=== PATIENT | male | born 1990 | race Caucasian/White ===

== ENCOUNTER 2018-11-15 10:17 | Emergency (ER) | payer OTHER ==
[2018-11-15 10:28] VITALS: BP 157/97
[2018-11-15] MEDS ORDERED: CHERRY SYRUP 10 ML UDC PO ONE (12:15)
[2018-11-15] MEDS ORDERED: DEXAMETHASONE 10 MG/ML VIAL PO STA (12:15)
--- NOTE | 2018-11-15 12:17 | ED Physician Documentation ---
PD HPI HEENT - Stated complaint Stated Complaint: THROAT PAIN - Chief complaint Chief Complaint: Heent - History obtained from History obtained from: Patient - History of Present Illness Timing - onset: Yesterday Timing - duration: Days (2) Timing - details: Gradual onset, Still present Location: Throat Improves: Medication Worsens: Swalllowing Associated symptoms: Fever, Congestion, Swollen nodes, Headache. No: Cough Similar symptoms before: Diagnosis (strep) Recently seen: Not recently seen - Additional information Additional information: 28-year-old male with a 2-day history of sore throat fever and no cough. Review of Systems Constitutional: reports: Fever Eyes: denies: Decreased vision Ears: denies: Ear pain Nose: reports: Rhinorrhea / runny nose, Congestion Throat: reports: Sore throat Cardiac: denies: Chest pain / pressure, Palpitations Respiratory: denies: Dyspnea, Cough GI: denies: Abdominal Pain, Nausea, Vomiting : denies: Dysuria, Frequency PD PAST MEDICAL HISTORY - Past Surgical History Past Surgical History: Yes HEENT: Tonsil/Adenoidectomy - Present Medications Home Medications: Ambulatory Orders Medication Instructions Recorded Confirmed Amoxicillin 875 mg PO BID #20 tablet 11/15/18 - Allergies Allergies/Adverse Reactions: Allergies Allergy/AdvReac Type Severity Reaction Status Date / Time No Known Drug Allergies Allergy Verified 11/15/18 10:28 - Social History Does the pt smoke?: Yes Smoking Status: Current every day smoker Does the pt drink ETOH?: Yes Does the pt have substance abuse?: No - Immunizations Immunizations are current?: Yes PD ED PE NORMAL - Vitals Vital signs reviewed: Yes - General General: Alert and oriented X 3, No acute distress, Well developed/nourished - HEENT HEENT: Atraumatic, PERRL, EOMI, Other (right TM is with minimal inflamation the left is clear the pharynx is with minimal inflamation to the uvual ) - Neck Neck: Supple, no meningeal sign, No bony TTP - Cardiac Cardiac: RRR, No murmur - Respiratory Respiratory: No respiratory distress, Clear bilaterally - Abdomen Abdomen: Soft, Non tender - Back Back: No CVA TTP, No spinal TTP - Derm Derm: Normal color, Warm and dry, No rash - Extremities Extremities: No deformity, No edema - Neuro Neuro: Alert and oriented X 3, litigation partner 2-12 intact, No motor deficit, No sensory deficit, Normal speech Eye Opening: Spontaneous Motor: Obeys Commands Verbal: Oriented GCS Score: 15 - Psych Psych: Normal mood, Normal affect Results - Vitals Vitals: Vital Signs - 24 hr 11/15/18 10:25 Temperature 37.1 C Heart Rate 57 L Respiratory 16 Rate Blood Pressure 157/97 H O2 Saturation 98 Oxygen O2 Source Room air - Labs Labs: Laboratory Tests 11/15/18 10:32 Group A Strep Rapid POSITIVE H PD MEDICAL DECISION MAKING - ED course Complexity details: reviewed results, considered differential, d/w patient, d/w family ED course: 28-year-old male with a sore throat has a positive rapid strep is administered Dexamethasone 10 mg orally we will place him on some amoxicillin. Departure - Departure Disposition: 01 Home, Self Care Clinical Impression: Strep pharyngitis Condition: Stable Instructions: ED Strep Pharyngitis Conf Follow-Up: JONATHAN Lau [Provider Group] Prescriptions: Amoxicillin 875 mg PO BID #20 tablet Forms: Activity restrictions
== END 2018-11-15 12:34 | disposition home or self-care (01) ==
LOC: ED 10:17
DX: J02.0 Streptococcal pharyngitis (principal); F17.200 Nicotine dependence, unspecified, uncomplicated
CPT/HCPCS: 87430; 99283; A9270

== ENCOUNTER 2019-01-04 18:28 | Emergency (ER) | payer OTHER ==
[2019-01-04] MEDS ORDERED: guaiFENesin/CODEINE 5 ML UDC PO STA (20:22)
--- NOTE | 2019-01-04 20:22 | ED Physician Documentation ---
PD HPI URI - Stated complaint Stated Complaint: CHEST CONGESTION - Chief complaint Chief Complaint: Resp - History obtained from History obtained from: Patient - History of Present Illness Timing - onset: Yesterday Timing details: Gradual onset, Waxing and waning Pain level max: 8 Pain level now: 5 Associated symptoms: Chills, Sweats, Sore throat, Dry cough, Chest pain (when coughing). No: Fever, Dyspnea Improves by: Other (OTC cough/cold medication (tylenol cold and flu, theraflu)) Recently seen: Not recently seen Review of Systems Constitutional: reports: Chills, Fatigue, Sweats. denies: Fever Ears: denies: Ear pain Throat: reports: Sore throat Cardiac: reports: Chest pain / pressure (only with coughing) Respiratory: reports: Cough. denies: Dyspnea PD PAST MEDICAL HISTORY - Past Medical History Past Medical History: No - Past Surgical History Past Surgical History: Yes HEENT: Tonsil/Adenoidectomy - Present Medications Home Medications: Ambulatory Orders Medication Instructions Recorded Confirmed guaiFENesin/CODEINE [Robitussin AC] 5 - 10 ml PO Q6H PRN #100 [facility] [place] 01/04/19 - Allergies Allergies/Adverse Reactions: Allergies Allergy/AdvReac Type Severity Reaction Status Date / Time No Known Drug Allergies Allergy Verified 01/04/19 18:32 - Social History Does the pt smoke?: Yes Smoking Status: Current every day smoker Does the pt drink ETOH?: Yes Does the pt have substance abuse?: No - Immunizations Immunizations are current?: Yes - POLST Patient has POLST: No PD ED PE NORMAL - Vitals Vital signs reviewed: Yes - General General: Alert and oriented X 3, No acute distress, Well developed/nourished - HEENT HEENT: Moist mucous membranes, Pharynx benign - Neck Neck: Supple, no meningeal sign - Cardiac Cardiac: RRR, No murmur - Respiratory Respiratory: No respiratory distress, Clear bilaterally Results - Vitals Vitals: Vital Signs - 24 hr 01/04/19 01/04/19 18:31 20:27 Temperature 37 C 36.8 C Heart Rate 74 64 Respiratory 20 18 Rate Blood Pressure 174/106 H 142/90 H O2 Saturation 97 97 Oxygen O2 Source Room air PD MEDICAL DECISION MAKING - ED course Complexity details: reviewed old records, considered differential, d/w patient ED course: lungs clear to auscultation bilaterally, normal appearance posterior o/p . HPI and exam most s/o URI; emergent testing not indicated at this time. Patient tells me his chief concern is the cough and associated pain with coughing, and thus rx for robitussin AC provided. Departure - Departure Disposition: Home, Self Care Clinical Impression: Bronchitis Condition: Good Health Concerns: chest congestion, cough, sore throat Plan of Treatment: rest, prescription cough medication (Robitussin AC) Care Goals: symptoms control followed by resolution of symptoms Assessment: see diagnosis Instructions: ED Upper Resp Infec No Abx Tx Follow-Up: JONATHAN Lau [Provider Group] Prescriptions: guaiFENesin/CODEINE [Robitussin AC] 5 - 10 ml PO Q6H PRN #100 [facility] PRN Reason: Cough Forms: Activity restrictions Discharge Date/Time: 01/04/19 20:30
[2019-01-04 20:29] VITALS: BP 142/90
== END 2019-01-04 20:30 | disposition home or self-care (01) ==
LOC: ED 18:28
DX: J40 Bronchitis, not specified as acute or chronic (principal); F17.200 Nicotine dependence, unspecified, uncomplicated
CPT/HCPCS: 99283; A9270

== ENCOUNTER 2019-04-16 16:53 | Emergency (ER) | payer OTHER ==
[2019-04-16 17:03] VITALS: BP 163/102
[2019-04-16] MEDS ORDERED: AMOX/CLAV 875 MG/125 MG TABLET PO STA (18:31)
[2019-04-16] MEDS ORDERED: BACITRACIN ZINC OINT 14 GM TOP STA (18:32)
--- NOTE | 2019-04-16 18:34 | ED Physician Documentation ---
PD HPI UPPER EXT INJURY - Stated complaint Stated Complaint: L FINGER LAC - Chief complaint Chief Complaint: Laceration - History obtained from History obtained from: Patient - History of Present Illness Location: Left, Finger (index) Type of injury: Other (dog bite) Timing - onset: How many hours ago (2) Timing - duration: Hours (2) Timing - details: Abrupt onset Pain level max: 3 Pain level now: 2 Improved by: Rest Worsened by: Moving, Palpating Associated symptoms: Swelling. No: Weakness, Numbness, Tingling Contributing factors: No: Anticoagulated Recently seen: Not recently seen - Additonal information Additional information: Td UTD. pt is right handed. Review of Systems Constitutional: denies: Fever Neurologic: denies: Focal weakness, Numbness PD PAST MEDICAL HISTORY - Past Medical History Past Medical History: No - Past Surgical History Past Surgical History: Yes HEENT: Tonsil/Adenoidectomy - Present Medications Home Medications: Ambulatory Orders Medication Instructions Recorded Confirmed Amox/Clav 875/125 [Augmentin] 1 each PO Q12H #20 tablet 04/16/19 - Allergies Allergies/Adverse Reactions: Allergies Allergy/AdvReac Type Severity Reaction Status Date / Time No Known Drug Allergies Allergy Verified 04/16/19 17:03 - Living Situation Living Arrangement: reports: At home - Social History Does the pt smoke?: Yes Smoking Status: Current every day smoker Does the pt drink ETOH?: Yes Does the pt have substance abuse?: No - Immunizations Immunizations are current?: Yes Immunizations: TDAP current <10years - POLST Patient has POLST: No PD ED PE NORMAL - Vitals Vital signs reviewed: Yes - General General: Alert and oriented X 3, No acute distress - Derm Derm: Warm and dry - Extremities Extremities: Other (Left index finger with 3 small abrasions. No significant lacerations. Neurovascularly intact. Tendon intact. No evidence of bony injury.) - Neuro Neuro: Alert and oriented X 3 Results - Vitals Vitals: Vital Signs - 24 hr 04/16/19 17:01 Temperature 36.8 C Heart Rate 120 H Respiratory 18 Rate Blood Pressure 163/102 H O2 Saturation 96 Oxygen O2 Source Room air PD MEDICAL DECISION MAKING - ED course Complexity details: considered differential, d/w patient ED course: Wounds were cleansed and bandaged. Tetanus is up-to-date. Will prescribe antibiotics for home. Warnings of infection and instructions on wound care given at bedside. Also counseled on how to minimize scarring. Patient counseled regarding signs and symptoms for which I believe and urgent re-evaluation would be necessary. Patient with good understanding of and agreement to plan and is comfortable going home at this time This document was made in part using voice recognition software. While efforts are made to proofread this document, sound alike and grammatical errors may occur. Departure - Departure Disposition: Home, Self Care Clinical Impression: Dog bite Qualifiers: Encounter type: initial encounter Qualified Code(s): W54.0XXA - Bitten by dog, initial encounter Condition: Good Instructions: ED Bite Animal General Follow-Up: JONATHAN Lau [Provider Group] - Within 1 week Prescriptions: Amox/Clav 875/125 [Augmentin] 1 each PO Q12H #20 tablet Comments: Return if you notice redness, swelling or drainage from the wound. Take all antibiotics until gone. Follow-up with your doctor next week for a wound check. Discharge Date/Time: 04/16/19 18:44
== END 2019-04-16 18:44 | disposition home or self-care (01) ==
LOC: ED 16:53
DX: S61.251A Open bite of left index finger without damage to nail, initial encounter (principal); W54.0XXA Bitten by dog, initial encounter; F17.200 Nicotine dependence, unspecified, uncomplicated
CPT/HCPCS: 99282; 99283; A9270

== ENCOUNTER 2019-07-09 09:41 | Emergency (ER) | payer OTHER ==
[2019-07-09 10:15] LABS: RAPID STREP SCREEN Negative (Negative)
--- NOTE | 2019-07-09 11:57 | ED Physician Documentation ---
History of Present Illness - Stated complaint Stated Complaint: SOA/SORE THROAT - Chief complaint Chief Complaint: Heent - Additonal information Additional information: This is a 29-year-old male presents with sore throat. He developed a sore throat cough and nasal congestion several days ago, sore throat has gotten somewhat worse since that time. He has been taking [id number] flu medication yesterday, and this helped temporarily. He has had multiple sick contacts. He has not had a measured fever.He came in because he wanted to check to make sure he did not have strep throat. Review of Systems Constitutional: denies: Fever Throat: reports: Sore throat PD PAST MEDICAL HISTORY - Past Medical History Cardiovascular: None Respiratory: None Endocrine/Autoimmune: None GI: None : None HEENT: None Psych: None Musculoskeletal: None Derm: None - Past Surgical History Past Surgical History: Yes HEENT: Tonsil/Adenoidectomy - Present Medications Home Medications: Ambulatory Orders Medication Instructions Recorded Confirmed Benzonatate [Tessalon Perle] 100 - 200 mg PO TID PRN #30 capsule 07/09/19 - Allergies Allergies/Adverse Reactions: Allergies Allergy/AdvReac Type Severity Reaction Status Date / Time No Known Drug Allergies Allergy Verified 07/09/19 09:55 - Social History Does the pt smoke?: Yes Smoking Status: Current every day smoker Does the pt drink ETOH?: Yes Does the pt have substance abuse?: No - Immunizations Immunizations are current?: Yes Immunizations: TDAP current <10years - POLST Patient has POLST: No PD ED PE NORMAL - Vitals Vital signs reviewed: Yes - General General: Alert and oriented X 3 - HEENT HEENT: Atraumatic, Other (Tonsils are 2+, erythematous, edematous, but without exudate. Uvula is midline. No trismus. Airway widely patent.) - Neck Neck: Supple, no meningeal sign - Cardiac Cardiac: RRR - Respiratory Respiratory: No respiratory distress - Extremities Extremities: No deformity - Neuro Neuro: Alert and oriented X 3 Results - Vitals Vitals: Vital Signs - 24 hr 07/09/19 07/09/19 09:54 12:27 Temperature 36.6 C 36.6 C Heart Rate 71 78 Respiratory 18 16 Rate Blood Pressure 145/91 H 162/99 H O2 Saturation 95 98 Oxygen O2 Source Room air - Labs Labs: Laboratory Tests 07/09/19 09:56 Group A Strep Rapid Negative PD MEDICAL DECISION MAKING - ED course ED course: Patient presents with symptoms consistent with a viral syndrome. He does have a sore throat but this is more likely a viral pharyngitis given his cough and nasal congestion. He does not have exudates, has not had fever. Rapid strep is negative. No signs of NEWS SPECIALIST or other bacterial or more serious infection. He is well-appearing and I discussed supportive care, he was given a dose of dexamethasone, I reviewed return precautions, patient was discharged home in good condition Departure - Departure Disposition: Home, Self Care Clinical Impression: Viral upper respiratory illness, Sore throat Condition: Good Instructions: ED Viral Syndrome Prescriptions: Benzonatate [Tessalon Perle] 100 - 200 mg PO TID PRN #30 capsule PRN Reason: Cough Comments: Your strep test was negative today. I think this is a viral illness. You may continue with your [id number]-zeddexi cold/flu medications, we also gave you steroid today that should help. You may try the Tessalon Perles for cough. If you having worsening symptoms such as inability to swallow liquids, or worsening swelling on one side of your face or throat, return to the emergency department. Discharge Date/Time: 07/09/19 12:32
[2019-07-09] MEDS ORDERED: CHERRY SYRUP 10 ML UDC PO ONE (12:05)
[2019-07-09] MEDS ORDERED: DEXAMETHASONE 10 MG/ML VIAL PO STA (12:05)
[2019-07-09 12:31] VITALS: BP 162/99
== END 2019-07-09 12:32 | disposition home or self-care (01) ==
LOC: ED 09:41
DX: J06.9 Acute upper respiratory infection, unspecified (principal); J02.8 Acute pharyngitis due to other specified organisms; B97.89 Other viral agents as the cause of diseases classified elsewhere; F17.200 Nicotine dependence, unspecified, uncomplicated
CPT/HCPCS: 87070; 87430; 99283; 99284; A9270

== ENCOUNTER 2020-06-10 20:16 | Emergency (ER) | payer OTHER ==
[2020-06-10 20:22] VITALS: BP 160/86
[2020-06-10] MEDS ORDERED: BUFFERED LIDOCAINE 10 ML SYRINGE SUBQ STA (20:32)
--- NOTE | 2020-06-10 20:34 | ED Physician Documentation ---
PD HPI WOUND RECHECK - Stated complaint Stated Complaint: LOW BACK PX - Chief complaint Chief Complaint: Back Pain - Histroy obtained from History obtained from: Patient (He had a pilonidal cyst once 8 years ago that was in the range. It has come back with pain over the last couple of days. No fever. No drainage.) Review of Systems Constitutional: reports: Reviewed and negative Ears: reports: Reviewed and negative Throat: reports: Reviewed and negative Cardiac: reports: Reviewed and negative PD PAST MEDICAL HISTORY - Past Medical History Cardiovascular: None Respiratory: None Endocrine/Autoimmune: None GI: None : None HEENT: None Psych: None Musculoskeletal: None Derm: None - Past Surgical History Past Surgical History: Yes HEENT: Tonsil/Adenoidectomy - Allergies Allergies/Adverse Reactions: Allergies Allergy/AdvReac Type Severity Reaction Status Date / Time No Known Drug Allergies Allergy Verified 06/10/20 20:19 - Social History Does the pt smoke?: Yes Smoking Status: Current every day smoker Does the pt drink ETOH?: Yes Does the pt have substance abuse?: No - Immunizations Immunizations are current?: Yes Immunizations: TDAP current <10years - POLST Patient has POLST: No PD ED PE NORMAL - Vitals Vital signs reviewed: Yes - General General: Alert and oriented X 3, No acute distress - Back Back: Other (Pointed pilonidal cyst at the top of the gluteal crease centrally) - Derm Derm: No rash - Neuro Neuro: Alert and oriented X 3, Normal speech Results - Vitals Vitals: Vital Signs - 24 hr 06/10/20 06/10/20 20:19 20:30 Temperature 36.6 C 36.6 C Heart Rate 74 74 Respiratory 16 16 Rate Blood Pressure 160/86 H 160/86 H O2 Saturation 97 97 Oxygen O2 Source Room air Procedures - Abscess I&D (location) Pilonidal Preparation: Alcohol, Lidocaine 1% Incision: Incised with scalpel, Purulent drainage, Loculations broken, Packed (with 1" packing) Other: Pt tolerated well, Dressing applied. No: Antibiotic prescribed (no hx MRSA, no cellulitis) Departure - Departure Disposition: 01 Home, Self Care Clinical Impression: Pilonidal cyst with abscess Condition: Good Instructions: ED Cyst Pilonidal Infected IandD Comments: [place] surgery referral for definitive removal of the pilonidal cyst. [place] 2 [place] for wound check and packing removal. Return if worsening.
[2020-06-10] MEDS ORDERED: oxyCODONE/ACET 5/325 Prepack 4 PO STA (20:40)
== END 2020-06-10 20:56 | disposition home or self-care (01) ==
LOC: ED 20:16
DX: L05.01 Pilonidal cyst with abscess (principal); F17.200 Nicotine dependence, unspecified, uncomplicated
CPT/HCPCS: 10080

== ENCOUNTER 2021-03-28 14:07 | Outpatient (CLI) | payer OTHER ==
--- NOTE | 2021-03-28 15:04 | SLEEP CARE CONSULTATION ---
Information from patient questionnaire entered by Ginette Oropeza. I have reviewed and concur with the information entered by Ginette Oropeza. This document represents the service I personally performed and the decisions made by me, Deborah Marte ARNP. History of Present Illness Service Date and Time: 03/28/2021 1407 Reason for Visit: New patient Chief Complaint: reports: Unrefreshed sleep, Snoring, Excessive daytime sleepiness, Observed pauses in breathing, Fatigue, Frequent awakenings at night Date of Onset: 3+ years Usual bedtime: [id number] Time it takes to fall asleep: 30-60 minutes Snores at night: Yes Observed to quit breathing while asleep: Yes Sleeps alone due to snoring: Yes (sometimes) Number of times waking at night: 2-3 Reasons for waking at night: reports: Bathroom, Other (unknown reason) Toss, Turn, or Twitch while sleeping: Yes (wakes up in different positions) Recalls having dreams: Yes Usually gets out of bed at: [id number]; weekends 5-7 am Feels refreshed in the morning: No Morning headache: Yes ( sometimes; 2 times a week, usually weekends) Sleepy or fatigued during the day: Yes Ever fallen asleep while driving: Yes (drowsy driving, no accidents) Takes day naps: No Dreams during day naps: No Prior sleep studies: No Additional HPI information: I had the pleasure of seeing JOHNATHAN PEACE JR today regarding the possibility of him having a sleep disorder. His current complaints are excessive daytime sleepiness, fatigue, frequent night awakenings, observed pauses in breathing, snoring and unrefreshed sleep. His tells him he stops breathing and is c hoking in his sleep. She has told him that he is gasping for air while sleeping. He has put on a lot more weight in the last few years since he has been with his . He usually weights between 190-220 pounds but recently gained to highest 293 pounds. He has times that he tries to fall asleep when driving that has scared him, but no accidents. He states that he has been told that he snores like "a bear". He states that he does not wake up feeling rested. He does wake up with his face swollen that goes down over the morning. He is fatigued during the day and does not want to do active things. - Parasomnia Symptoms Ever been unable to move upon waking from sleep: No Walks in sleep: Yes (get up to bathroom while asleep, nocturia rarely) Talks in sleep: Yes Ever acted out dreams in sleep: No Ever felt weak in the knees when startled or emotional: No Bothered by creepy, crawly, restless sensations in legs: No Problems with memory or concentration: Yes (concentration, hard to focus; not as much memory issues) Subjective Initial [place] Sleepiness Scale score: 14 (in 03/2021) Past Medical History Past Medical History: reports: Other (intermittent high blood pressure, no medications) Social History The patient's occupation is a AM. Patient is Single and lives in [place]. Have you smoked in the past 12 months: No Alcohol use: Yes Alcohol amount and frequency: few beers, 1 day/week Caffeine use: Yes Caffeine amount and frequency: 1 energy drink or coffee in the morning Family History Family history of sleep disordered breathing: No Allergies and Home Medications Drug allergies reviewed: Yes (NKDA) Home medication list reviewed: Yes (no daily medications or supplements) Review of Systems Weight gain over past 5 years: 60-70 Cardiovascular: reports: high blood pressure, leg or foot swelling Gastrointestinal: reports: heartburn, diarrhea Urinary: reports: urgency Neurological: denies: headaches Psychiatric: denies: anxiety, depression, mood disorder Ear/Nose/Throat: reports: nasal congestion, sinus problems, nose bleeds, dry mouth/throat, tonsillectomy, wisdom teeth removed Endocrine: reports: sluggishness, increased urination Musculoskeletal: reports: joint pain, neck pain, back pain, joint swelling, muscle pain or cramping, mobility problems Immunologic: reports: sneezing. denies: allergies to food or environment Physical Exam Blood Pressure: 136/92 Cuff size: long Heart Rate: 68 O2 Saturation: 97 Height: 5 ft 11 in Weight: 288 lb Body Mass Index: 40.1 BMI Classification: Morbidly Obese Neck circumference: 17.25 (inches) Nostrils: patent to airflow Mouth and throat: narrow oropharynx Soft palate: long Hard palate: normal Uvula: normal Uvula visualization: 50% Mallampati Class II Tongue: enlarged in size with teeth mccurdy on lateral edges Tonsils: absent bilaterally Neck: normal w/o lymphadenopathy or thyromegaly Heart: regular rate and rhythm Lungs: clear bilaterally Impression and Plan 1. Suspected Obstructive Sleep Apnea-Hypopnea Syndrome, as suggested by a history of loud and irregular snoring, observed cessation of breath while asleep, gasping or choking in sleep, morning headache, frequent awakening during the night, unrefreshed sleep, cognitive impairment, and excessive daytime sleepiness. Narrow oropharynx and obesity are common predisposing factors for obstructive sleep apnea-hypopnea syndrome. I recommend proceeding to polysomnography to confirm the diagnosis and to assess severity. If the patient has significant sleep disordered breathing, a manual CPAP titration study will also be performed to find the optimal treatment pressure. I informed the patient of what the sleep studies involve and after some discussion, obtained agreement to proceed. The pathophysiology of obstructive sleep apnea-hypopnea syndrome was discussed with the patient and health risks of cardiovascular and cerebrovascul ar disease if not treated. [facility] brochure for obstructive sleep apnea-hypopnea syndrome given and reviewed. Risks of drowsy driving discussed in detail and patient advised to avoid long distance driving and to thread puller at the first sign of drowsiness. Patient agreed to plan. [facility] drowsy driving brochure given. * Schedule polysomnography +- manual CPAP titration study and return in 1-2 weeks after the study to discuss result and initiate therapy. * Avoid long distance driving or driving when feeling sleepy. * Avoid alcohol, sedative and muscle relaxant around bedtime. * Attempt to lose weight. * Review instructions provided by trained office staff on how to prepare for the sleep study. * Return for follow-up after sleep study completed. Counseling Topics: Weight loss health impact Visit Type: In Office Time Spent with Patient (minutes): 33 Provider Statement: I spent 100% of the Face to Face Visit with the patient with greater than 50% spent counseling the patient and coordination of care.
[2021-03-28 15:05] VITALS: BP 136/92
== END 2021-03-28 14:08 | disposition home or self-care (01) ==
LOC: SC 14:07
PROVIDERS: ATTEND Nurse Practitioner Family
DX: R06.83 Snoring (principal); R06.81 Apnea, not elsewhere classified; G47.8 Other sleep disorders; R51.9 Headache, unspecified; R41.89 Other symptoms and signs involving cognitive functions and awareness; G47.10 Hypersomnia, unspecified; E66.01 Morbid (severe) obesity due to excess calories; Z68.41 Body mass index [BMI] 40.0-44.9, adult
CPT/HCPCS: 99203; 99212

== ENCOUNTER 2021-04-06 08:56 | Outpatient (CLI) | payer OTHER | END 2021-04-06 08:57 | disposition home or self-care (01) | LOC: SC 08:56 | PROVIDERS: ATTEND Nurse Practitioner Family | DX: G47.33 Obstructive sleep apnea (adult) (pediatric) (principal); R09.02 Hypoxemia | CPT/HCPCS: 95806 ==

== ENCOUNTER 2021-04-25 08:14 | Outpatient (CLI) | payer OTHER ==
--- NOTE | 2021-04-25 08:40 | SLEEP CARE CONSULTATION ---
Information from patient questionnaire entered by Ginette Oropeza. I have reviewed and concur with the information entered by Ginette Oropeza. This document represents the service I personally performed and the decisions made by me, Deborah Marte ARNP. History of Present Illness Service Date and Time: 04/25/2021 08 Initial [place] Sleepiness Scale score: 14 (in 03/2021) Current [place] Sleepiness Scale score: 16 Additional HPI information: JOHNATHAN PEACE JR returns for follow up and results of the recently performed home sleep study. I explained the pathophysiology behind obstructive sleep apnea. We then spent quite a bit of time discussing different treatment options. For mild obstructive sleep apnea, surgery and oral appliance are alternatives to nasal CPAP therapy but in moderate or severe cases, nasal CPAP is the most effective and reliable treatment. Because apnea is primarily in supine position, then positional management therapy could be effective. Methods discussed such as positioning with pillows, using a T-shirt with tennis balls in the back, and shown commercial products that have a pillow format on back to prevent supine sleep. I reviewed the impact of weight changes on sleep apnea and strongly recommended losing weight. After some discussion, the patient opted to go with the nasal CPAP therapy. Nasal autoCPAP set at 4-15 cmH20 will be ordered with rationale explained. A manual titration study will be ordered if unable to find optimal pressure with office adjustments. I explained how CPAP machine works with sample devices [employer] Dreamstation and [employer] [id number] and what to expect when using the machine. Using CPAP every night in order to get used to it was emphasized. Patient advised to put CPAP mask on before getting into bed so as not to fall asleep without CPAP. To assist acclimation to CPAP use, it could also be used for a short time during day while reading or watching TV. The patient was instructed to call the CPAP supplier to discuss any mechanical problem that may occur. If the mask given is uncomfortable or is difficult to keep on through the night even with adjustment, contact the CPAP supplier as many will replace with another mask style if notified before 30 days. If snoring or perceives is not getting enough air or too much air from the machine, notify this office. [facility] patient education PAP tips reviewed and given to patient. Patient counseled not drink alcohol less than 4 hours before bedtime as it can increase snoring and apnea. Patient was cautioned about risks of drowsy driving until sleepiness symptoms resolve. Sleep Study - Results Type of Sleep Study: Home sleep study Prior sleep studies: Yes Year and Where: 04/2021 [facility] Polysomnography/Home Sleep Study results: Physician Impression: The quality of the study is good. The length of the study is adequate (> 240 minutes). Please also see the tabulated and graphic data. 1. Obstructive Sleep Apnea-Hypopnea (ICD-10 G47.33), mild, with an AHI of 12.8/hr and jurgen SaO2 of 88%. During the study, the patient had 26 apneas (26 obstructive, 0 central, 0 mixed) and 43 hypopneas. The longest episode lasted 55.5 seconds. The patient only slept supine during this study (supine AHI was 12.8 and non-supine, 0.00). 2. Hypoxemia (ICD-10 R09.02), minimal, with the lowest oxygen saturation of 88 % and 0.1 minutes with SaO2 under 90%. Baseline oxygen saturation was normal (Average oxygen saturation was 94%). Allergies and Home Medications Home medication list reviewed: Yes (no changes) Review of Systems Review of systems same as previous: Yes (no changes) Physical Exam Heart Rate: 72 O2 Saturation: 97 Height: 5 ft 11 in Weight: 295 lb Body Mass Index: 41.1 BMI Classification: Morbidly Obese Impression and Plan 1. Obstructive Sleep Apnea-Hypopnea Syndrome, mild, with lowest oxygen saturation of 88%. Obviously this is the cause of the patients symptoms of unrefreshed sleep, and excessive daytime sleepiness. Positive pressure therapy could benefit his overall health and reduce risks of cardiovascular and cerebrovascular adverse events. As mentioned above, the patient will be started on nasal autoCPAP therapy with pressure set at 4-15 cmH2O. A manual titration study will be completed if unable to find optimal treatment pressure with office adjustments. Compliance guidelines also reviewed. A copy of compliance guidelines will be given for reference at check out. * Nasal auto CPAP therapy, pressure at 4-15 cm H2O. * Attempt to lose weight. * Avoid alcohol consumption near bedtime. * The patient is again cautioned about driving until sleepiness completely resolves. * Return one month after CPAP obtained. I will assess response to therapy and compliance at that time. Counseling Topics: Weight loss health impact Visit Type: In Office Time Spent with Patient (minutes): 21 Provider Statement: I spent 100% of the Face to Face Visit with the patient with greater than 50% spent counseling the patient and coordination of care.
== END 2021-04-25 08:15 | disposition home or self-care (01) ==
LOC: SC 08:14
PROVIDERS: ATTEND Nurse Practitioner Family
DX: G47.33 Obstructive sleep apnea (adult) (pediatric) (principal); E66.01 Morbid (severe) obesity due to excess calories; Z68.41 Body mass index [BMI] 40.0-44.9, adult
CPT/HCPCS: 99212; 99213